=== PATIENT | female | born 1995 | race Caucasian/White ===

== ENCOUNTER 2018-03-26 10:50 | Emergency (ER) | payer SELFPAY ==
[2018-03-26] MEDS ORDERED: diphenhydrAMINE 25 MG CAP ONE (11:15)
== END 2018-03-26 12:38 | disposition home or self-care (01) ==
LOC: NAV ERS 10:50
DX: O99.711 Diseases of the skin and subcutaneous tissue complicating pregnancy, first trimester (principal); L50.0 Allergic urticaria; O99.341 Other mental disorders complicating pregnancy, first trimester; F41.9 Anxiety disorder, unspecified; O99.331 Smoking (tobacco) complicating pregnancy, first trimester
CPT/HCPCS: 99283

== ENCOUNTER 2018-04-11 21:48 | Emergency (ER) | payer MEDICAID, SELFPAY ==
[2018-04-11 22:09] LABS: Bilirubin Negative (Negative); Blood, Urine Negative (Negative); Clarity Clear (Clear); Glucose, Urine (Dipstick) Negative (Negative); Leukocyte Moderate (Negative); Nitrite Negative (Negative); Protein, Urine (Dipstick) Negative (Neg-Trace); Specific Gravity, Urine 1.025 (1.005-1.030)
[2018-04-11 22:11] LABS: Bacteria/HPF 1+ HPF (None Seen); RBC/HPF None Seen HPF (0-3)
[2018-04-11 22:27] LABS: Pregnancy Test - Urine (BHCG) POSITIVE (Negative); Pregu Control Background? CLEAR/WHITE (CLR/WHITE); Pregu Control Bar Appear? YES (CONTROL BAR); Specific Gravity 1.025 (1.002-1.036)
[2018-04-11] MEDS ORDERED: Cephalexin 250 MG CAP ONE (22:42)
== END 2018-04-11 22:43 | disposition home or self-care (01) ==
LOC: NAV ERS 21:48
DX: O23.41 Unspecified infection of urinary tract in pregnancy, first trimester (principal); O99.341 Other mental disorders complicating pregnancy, first trimester; F41.9 Anxiety disorder, unspecified; O99.331 Smoking (tobacco) complicating pregnancy, first trimester; F17.210 Nicotine dependence, cigarettes, uncomplicated; Z3A.09 9 weeks gestation of pregnancy
CPT/HCPCS: 81003; 81015; 81025; 87086; 99283